=== PATIENT | male | born 1955 | race American Indian/Alaskan Native ===

== ENCOUNTER 2018-04-06 08:19 | Outpatient (CLI) | payer OTHER ==
--- NOTE | 2018-04-17 17:53 | Vascular Lab Report ---
CAROTID DUPLEX STUDY: RIGHT PSVEDV CCA PROX:[id number] CCA DIST:[id number] ICA PROX:7420 ICA MID:8332 ICA DIST:6928 ECA: 83 VERT: 35 13 LEFT PSVEDV CCA PROX:8927 CCA DIST:8429 ICA PROX:6519 ICA MID:5923 ICA DIST:5223 ECA: 66 VERT: 50 20 REASON FOR EXAM: Visual disturbance. COMMENTS ON THE RIGHT: Doppler frequency analysis is consistent with 16 to 49 percent diameter reduction of the internal carotid artery. A small amount of plaque is seen. The common carotid artery is patent. The external carotid artery is patent. The vertebral artery has antegrade flow. COMMENTS ON THE LEFT: Doppler frequency analysis is consistent with 16 to 49 percent diameter reduction of the internal carotid artery. A small amount of plaque is seen. The common carotid artery is patent. The external carotid artery is patent. The vertebral artery has antegrade flow. IMPRESSION: Less than 50% diameter reduction in the internal carotid arteries bilaterally.
== END 2018-04-06 08:20 | disposition home or self-care (01) ==
LOC: VAS 08:19
PROVIDERS: ATTEND Family Medicine
DX: I65.29 Occlusion and stenosis of unspecified carotid artery (principal)
CPT/HCPCS: 93880

== ENCOUNTER 2018-10-04 06:29 | Day surgery (SDC) | payer OTHER ==
[2018-10-04] MEDS ORDERED: NACL 0.9% 1000 ML 1,000 ML IV SCH (09:00)
[2018-10-04] MEDS ORDERED: DIPRIVAN 10 MG/ML IV ONE ×3 (09:03→09:46)
[2018-10-04] MEDS ORDERED: WATER FOR IRRIG STERILE IR ONE (09:08)
[2018-10-04] MEDS ORDERED: WATER FOR IRRIG STERILE ONE (09:09)
--- NOTE | 2018-10-04 10:03 | Short Stay Summary ---
Short Stay Documentation - Allergies and Medications Current Medications: Allergies No Known Allergies Allergy (Verified 10/04/18 08:02) Home Medications Medication Instructions Recorded Confirmed Last Taken Type Irbesartan-Hctz 150-12.5 mg Tb 1 tab PO DAILY 10/04/18 10/04/18 10/03/18 History Propranolol 80 mg PO DAILY 10/04/18 10/04/18 10/03/18 History amLODIPine 5 mg PO DAILY 10/04/18 10/04/18 10/03/18 History Active Medications Sodium Chloride (Nacl 0.9% 1000 Ml) 1,000 mls @ 50 mls/hr IV DIRECT BELEM Last Admin: 10/04/18 08:26 Dose: 50 mls/hr Documented by: - Brief post op/procedure progress note Date of procedure: 10/04/18 Pre-op diagnosis: Colon cancer screening Post-op diagnosis: same (1. Colon polyps 2. Diverticulosis 3. Internal hemorrhoids) Procedure: Colonoscopy with snare polypectomy and with cold biopsy polypectomy Anesthesia: MAC Findings: as above Surgeon: ADILIA SIMMONS Estimated blood loss: none Pathology: list (1. Ascending colon polyps 2. Sigmoid colon polyps 3. Rectal polyps) Specimen disposition: to lab Condition: stable - Disposition Condition at discharge: Stable Disposition: DC- TO HOME OR SELFCARE Short Stay Discharge Plan Activity: no restrictions Weight Bearing Status: Full Weight Bearing Diet: regular, low salt Follow up with: TENZIN MONAHAN MD [Primary Care Provider] - 7 Days
--- NOTE | 2018-10-04 10:11 | Anesthesia Day of Surgery ---
Anesthesia Day of Surgery - Day of Surgery Patient Examined: Yes Patient H&P Reviewed: Yes Patient is NPO: Yes Beta Blockers: No
--- NOTE | 2018-10-04 10:15 | Anesthesia Consultation ---
Anesthesia Consult and Med Hx Date of service: 10/04/18 - Airway Anesthetic Teeth Evaluation: Good ROM Head & Neck: Adequate Mental/Hyoid Distance: Adequate Mallampati Class: Class III - Pulmonary Exam CTA: Yes - Cardiac Exam Cardiac Exam: No Murmur - Pre-Operative Health Status ASA Pre-Surgery Classification: ASA3 - Cardiovascular System Hx Hypertension: Yes
[2018-10-04 10:32] VITALS: BP 101/59
== END 2018-10-04 06:30 | disposition home or self-care (01) ==
LOC: GIO 06:29
PROVIDERS: ATTEND Internal Medicine Gastroenterology
DX: Z12.11 Encounter for screening for malignant neoplasm of colon (principal); D12.2 Benign neoplasm of ascending colon; K63.5 Polyp of colon; K62.1 Rectal polyp; I10 Essential (primary) hypertension; E78.00 Pure hypercholesterolemia, unspecified; F17.210 Nicotine dependence, cigarettes, uncomplicated; K64.8 Other hemorrhoids; K57.30 Diverticulosis of large intestine without perforation or abscess without bleeding
CPT/HCPCS: 45380; 45385; 88305; J2704; J7030